=== PATIENT | female | born 1980 | race Hispanic/Latino ===

== ENCOUNTER 2023-10-07 13:19 | Inpatient (IN) | payer OTHER ==
[~2023-10-07] VITALS: Ht 157.5 cm; Wt 63.0 kg
[2023-10-07] VITALS (13 sets, daily range): BP systolic 116–163; BP diastolic 77–114; PULSE 84–108; RESP 6–73; O2SAT 96
[2023-10-07 14:19] LABS: BASOPHILS # (AUTO) 0.11 K/uL (0.00-0.20); BASOPHILS % (AUTO) 0.8 % (0.0-5.0); EOSINOPHILS # (AUTO) 0.07 K/uL (0.00-0.70); EOSINOPHILS % (AUTO) 0.5 % (0.0-8.0); HEMATOCRIT 24.4 % (36-48); IMMATURE GRANULOCYTE ABSOLUTE 0.21 K/uL (0-1); LYMPHOCYTES # (AUTO) 1.4 K/uL (1.0-4.8); MEAN CORPUSCULAR HEMOGLOBIN 27.3 pg (27.0-33.0); MEAN CORPUSCULAR HGB CONC 32.8 g/dL (32.0-36.0); MEAN CORPUSCULAR VOLUME 83.3 fL (79-99); MONOCYTES # (AUTO) 1.5 K/uL (0.1-1.0); NEUTROPHILS # (AUTO) 10.3 K/uL (1.8-7.7); NEUTROPHILS % (AUTO) 76.1 % (40.0-77.0); RED BLOOD CELL COUNT(AUTO) 2.93 MIL/uL (4.00-5.50); RED CELL DISTRIBUTION WIDTH 18.4 % (11.0-15.5); WHITE BLOOD COUNT (AUTO) 13.5 K/uL (4.8-10.8)
[2023-10-07] MEDS: LACTATED RINGERS 1000ML 1,000 ML IV ONE (14:31)
[2023-10-07 14:36] LABS: PLATELET COUNT (AUTO) 846 K/uL (130-400)
[2023-10-07 14:41] LABS: B-TYPE NATRIURETIC PEPTIDE 1530 pg/mL (0-100)
[2023-10-07 14:54] LABS: CREATININE 0.8 mg/dL (0.5-1.0); POTASSIUM 3.7 mmol/L (3.5-5.1)
[2023-10-07 14:55] LABS: PLATELET MORPHOLOGY COMMENT INCREASED
[2023-10-07] MEDS ORDERED: IOHEXOL 350 MG/ML 100ML INFUS..BTL IV ONE (15:11)
[2023-10-07 15:16] LABS: APPEARANCE,URINE CLEAR (CLEAR); BILIRUBIN,URINE NEGATIVE (NEGATIVE); COLOR,URINE LIGHT-YELLOW (YELLOW); GLUCOSE, URINE (UA) NEGATIVE (NEGATIVE); KETONES,URINE 40 mg/dL (NEGATIVE); LEUKOCYTE ESTERASE ,URINE NEGATIVE Leu/uL (NEGATIVE); NITRATE,URINE NEGATIVE (NEGATIVE); OCCULT BLOOD,URINE NEGATIVE (NEGATIVE); PH,URINE 5.5 (5.0-8.0); PROTEIN,URINE 10 mg/dL (NEGATIVE); UROBILINOGEN,URINE 0.2 mg/dL (0.2-1.0)
[2023-10-07 15:19] LABS: ADD UA MICROSCOPIC YES
[2023-10-07 15:21] LABS: RBC,URINE 0-1 /HPF (0-1); SQUAMOUS EPITHELIAL CELL,UR RARE /HPF (0-2); WBC,URINE 0-1 /HPF (0-1)
[2023-10-07 15:23] LABS: SARS-CoV-2, RNA, NAAT NEGATIVE SARS CoV-2 (NEGATIVE)
[2023-10-07 15:29] LABS: INFLUENZA TYPE A Negative For Type A (NEGATIVE); INFLUENZA TYPE B Negative For Type B (NEGATIVE)
[2023-10-07] MEDS: FUROSEMIDE 20MG VIAL IV ONE (15:39)
[2023-10-07 16:11] LABS: INR 1.07 (0.85-1.15); PROTHROMBIN TIME 11.5 SEC (9.6-11.6)
[2023-10-07 16:12] LABS: PARTIAL THROMBOPLASTIN TIME 31.3 SEC (26.3-35.5)
[2023-10-07] MEDS ORDERED: DOXYCYCLINE 100MG+NS 250ML 250 ML IV STA (16:46)
[2023-10-07] MEDS ORDERED: CEFEPIME HCL 2 GM VIAL IVPB STA (16:46)
[2023-10-07 17:27] LABS: CREATININE,URINE RANDOM 52.24 mg/dL (30-135)
[2023-10-07 17:28] LABS: AMPHET/METH SCREEN,URINE NEGATIVE (NEGATIVE); BARBITURATE SCREEN, URINE NEGATIVE (NEGATIVE); BENZODIAZEPINES SCREEN,URINE NEGATIVE (NEGATIVE); CANNABINOID SCREEN,URINE NEGATIVE (NEGATIVE); COCAINE SCREEN,URINE NEGATIVE (NEGATIVE); OPIATE SCREEN,URINE NEGATIVE (NEGATIVE); PHENCYCLIDINE SCREEN,URINE NEGATIVE (NEGATIVE)
[2023-10-07] MEDS ORDERED: 0.9%NACL 50ML IV SCH (17:30)
[2023-10-07 17:31] LABS: HEMOGLOBIN A1C 5.1 % (4.0-6.0)
[2023-10-07 17:34] LABS: BILIRUBIN,DIRECT 0.3 mg/dL (0.0-0.3); BILIRUBIN,TOTAL 0.6 mg/dL (0.2-1.0); TOTAL PROTEIN, SERUM 7.5 g/dL (6.0-8.3)
[2023-10-07 17:44] LABS: RETICULOCYTE % (AUTO) 2.97 % (0.42-2.23)
[2023-10-07] MEDS: ZOSYN 3.375GM +NS 50ML IVPB SCH (17:53)
[2023-10-07] MEDS ORDERED: DOXYCYCLINE 100MG+NS 250ML 250 ML IV SCH (18:00)
[2023-10-07] MEDS: AMLODIPINE 5 MG TAB PO SCH (18:03)
[2023-10-07] MEDS: NITROGLYCERIN PATCH 0.2 MG/HR TD SCH (18:03)
[2023-10-07 18:21] LABS: CREATININE 0.8 mg/dL (0.5-1.0); MAGNESIUM 1.4 mg/dL (1.80-2.40); POTASSIUM 3.6 mmol/L (3.5-5.1); THYROID STIMULATING HORMONE 3.45 uIU/mL (0.36-3.74)
[2023-10-07 18:25] LABS: % IRON SATURATION 4.9 % (22-44)
[2023-10-07] MEDS: BUDESONIDE 0.5 MG/2 ML INH IH SCH (18:43)
[2023-10-07 18:49] LABS: HIV 1&2 ANTIBODY Non-Reactive (Negative); HIV-1 p24 Antigen Non-Reactive (Negative)
[2023-10-07] MEDS: FUROSEMIDE 20MG VIAL IV SCH (20:18)
[2023-10-07] MEDS: DOXYCYCLINE 100MG+NS 250ML 250 ML IV SCH (20:19)
[2023-10-07] MEDS: FERROUS SULFATE 325 MG TABLET.DR PO SCH (20:19)
[2023-10-07] MEDS: ACETAMINOPHEN 500 MG TABLET PO PRN (20:19)
[2023-10-07] MEDS: PANTOPRAZOLE 40 MG/VIAL IVP SCH (20:24)
[2023-10-07] MEDS: ENOXAPARIN SODIUM 40 MG/0.4 ML SYRINGE SQ SCH (20:25)
[2023-10-07] MEDS ORDERED: LABETALOL 20MG SYG IV PRN (20:30)
[2023-10-07] MEDS: LABETALOL 20MG SYG IV PRN (20:53)
[2023-10-07] MEDS ORDERED: HYDRALAZINE 20MG/ML VIAL IV PRN (21:00)
[2023-10-07] MEDS ORDERED: AMLO-257 PO (21:01)
[2023-10-07] MEDS: MAGNESIUM 2GM PREMIX 50ML 50 ML IV SCH (23:23)
[2023-10-07 23:54] LABS: CREATININE 0.9 mg/dL (0.5-1.0); POTASSIUM 3.5 mmol/L (3.5-5.1); URIC ACID 5.2 mg/dL (2.6-7.2)
[2023-10-08] VITALS (35 sets, daily range): BP systolic 103–154; BP diastolic 65–105; PULSE 72–109; RESP 12–33; O2SAT 95–97
[2023-10-08] MEDS ORDERED: POTASSIUM CHLORIDE 10MEQ/100ML 100 ML IV PRN (01:30)
[2023-10-08] MEDS ORDERED: POTASSIUM CHLORIDE 20MEQ/100ML 100 ML IV PRN (01:30)
[2023-10-08] MEDS: POTASSIUM CHLORIDE 10% ELIXIR 20 MEQ/15 ML UDCUP PO PRN (02:27)
[2023-10-08 05:35] LABS: BASOPHILS # (AUTO) 0.07 K/uL (0.00-0.20); BASOPHILS % (AUTO) 0.6 % (0.0-5.0); EOSINOPHILS # (AUTO) 0.12 K/uL (0.00-0.70); HEMATOCRIT 21.4 % (36-48); LYMPHOCYTES # (AUTO) 1.5 K/uL (1.0-4.8); LYMPHOCYTES % (AUTO) 11.9 % (21.0-51.0); MEAN CORPUSCULAR HEMOGLOBIN 27.4 pg (27.0-33.0); MEAN CORPUSCULAR HGB CONC 33.2 g/dL (32.0-36.0); MEAN CORPUSCULAR VOLUME 82.6 fL (79-99); MONOCYTES # (AUTO) 1.9 K/uL (0.1-1.0); MONOCYTES % (AUTO) 15.6 % (3.0-13.0); NEUTROPHILS # (AUTO) 8.6 K/uL (1.8-7.7); NEUTROPHILS % (AUTO) 69.3 % (40.0-77.0); NUCLEATED RED BLOOD CELLS 0.2 % (0.0-0.19); RED BLOOD CELL COUNT(AUTO) 2.59 MIL/uL (4.00-5.50); RED CELL DISTRIBUTION WIDTH 18.7 % (11.0-15.5); WHITE BLOOD COUNT (AUTO) 12.4 K/uL (4.8-10.8)
[2023-10-08 05:36] LABS: PLATELET COUNT (AUTO) 713 K/uL (130-400)
[2023-10-08 06:24] LABS: POTASSIUM 3.8 mmol/L (3.5-5.1)
[2023-10-08] MEDS: SODIUM CHLORIDE 3% FOR INHALATION 4 ML/AMP VIAL.NEB IH ONE ×2 (06:32→11:12)
[2023-10-08] MEDS: Vitamin B Complex/Vit C/Folic Acid PO SCH (08:29)
[2023-10-08] MEDS: PROPRANOLOL HCL 20 MG TAB PO ONE (13:05)
[2023-10-08] MEDS: NIFEDIPINE ER 30 MG TAB PO ONE (13:05)
[2023-10-08] MEDS ORDERED: COMPOUND IV REFRIGERATED 1 EACH IVSOLN MISC PRN (14:00)
[2023-10-08] MEDS ORDERED: COMPOUND IV MISC 1 EACH IVSOLN MISC PRN (14:00)
[2023-10-08 19:49] LABS: AMYLASE 169 U/L (25-115); TRIGLYCERIDES 125 mg/dL (30-200)
[2023-10-08] MEDS: PROPRANOLOL HCL 20 MG TAB PO SCH (20:22)
[2023-10-08] MEDS: IRON SUCROSE COMPLEX 300 MG in 0.9% NACL 250ML 250 ML IV SCH (21:41)
[2023-10-09] VITALS (22 sets, daily range): BP systolic 110–140; BP diastolic 80–108; PULSE 71–87; RESP 15–26; O2SAT 94–95
[2023-10-09 04:26] LABS: BASOPHILS # (AUTO) 0.08 K/uL (0.00-0.20); BASOPHILS % (AUTO) 0.7 % (0.0-5.0); EOSINOPHILS # (AUTO) 0.17 K/uL (0.00-0.70); EOSINOPHILS % (AUTO) 1.5 % (0.0-8.0); IMMATURE GRANULOCYTE ABSOLUTE 0.23 K/uL (0-1); LYMPHOCYTES # (AUTO) 1.7 K/uL (1.0-4.8); LYMPHOCYTES % (AUTO) 15.1 % (21.0-51.0); MEAN CORPUSCULAR HEMOGLOBIN 27.8 pg (27.0-33.0); MEAN CORPUSCULAR HGB CONC 32.3 g/dL (32.0-36.0); MEAN CORPUSCULAR VOLUME 86.3 fL (79-99); MONOCYTES # (AUTO) 1.6 K/uL (0.1-1.0); MONOCYTES % (AUTO) 14.3 % (3.0-13.0); NEUTROPHILS # (AUTO) 7.5 K/uL (1.8-7.7); NEUTROPHILS % (AUTO) 66.4 % (40.0-77.0); PLATELET COUNT (AUTO) 686 K/uL (130-400); RED BLOOD CELL COUNT(AUTO) 2.55 MIL/uL (4.00-5.50); RED CELL DISTRIBUTION WIDTH 19.5 % (11.0-15.5); WHITE BLOOD COUNT (AUTO) 11.3 K/uL (4.8-10.8)
[2023-10-09 04:42] LABS: ALBUMIN 2.4 g/dL (3.5-5.0); BILIRUBIN,TOTAL 0.6 mg/dL (0.2-1.0); CREATININE 1.1 mg/dL (0.5-1.0); MAGNESIUM 1.7 mg/dL (1.80-2.40); PHOSPHORUS 2.7 mg/dL (2.5-4.9); POTASSIUM 3.8 mmol/L (3.5-5.1); TOTAL PROTEIN, SERUM 6.1 g/dL (6.0-8.3)
[2023-10-09 04:52] LABS: B-TYPE NATRIURETIC PEPTIDE 815 pg/mL (0-100)
[2023-10-09] MEDS: D5 NS WITH 20 mEq KCl 1000ML IV SCH (05:53)
[2023-10-09] MEDS: IPRATROPIUM 0.5 MG/2.5 ML INH IH PRN (08:25)
[2023-10-09] MEDS: NIFEDIPINE ER 30 MG TAB PO SCH (09:11)
[2023-10-09] MEDS: FUROSEMIDE 20 MG TABLET PO SCH (09:15)
[2023-10-09] MEDS ORDERED: LIPASE/PROTEASE/AMYLASE 5000/17000/24000 PO SCH (11:30)
[2023-10-09] MEDS: LIPASE/PROTEASE/AMYLASE 5000/17000/24000 PO SCH (11:34)
[2023-10-09] MEDS: FUROSEMIDE 20MG VIAL IV ONE (11:34)
[2023-10-10] VITALS (13 sets, daily range): BP systolic 116–151; BP diastolic 67–99; PULSE 69–90; RESP 18–20; O2SAT 96–98
[2023-10-10 01:25] LABS: HEPATITIS A IGM ANTIBODY Non-Reactive (Nonreactive); HEPATITIS B CORE IGM ANTIBODY Non-Reactive (Negative); HEPATITIS B SURFACE ANTIGEN Non-Reactive (Nonreactive); HEPATITIS C ANTIBODY Non-Reactive (Nonreactive)
[2023-10-10 03:51] LABS: BASOPHILS # (AUTO) 0.19 K/uL (0.00-0.20); BASOPHILS % (AUTO) 1.1 % (0.0-5.0); EOSINOPHILS # (AUTO) 0.23 K/uL (0.00-0.70); EOSINOPHILS % (AUTO) 1.3 % (0.0-8.0); HEMATOCRIT 22.3 % (36-48); IMMATURE GRANULOCYTE ABSOLUTE 0.43 K/uL (0-1); LYMPHOCYTES # (AUTO) 2.5 K/uL (1.0-4.8); LYMPHOCYTES % (AUTO) 14.6 % (21.0-51.0); MEAN CORPUSCULAR HEMOGLOBIN 27.3 pg (27.0-33.0); MEAN CORPUSCULAR HGB CONC 30.9 g/dL (32.0-36.0); MEAN CORPUSCULAR VOLUME 88.1 fL (79-99); MONOCYTES # (AUTO) 2.2 K/uL (0.1-1.0); MONOCYTES % (AUTO) 12.7 % (3.0-13.0); NEUTROPHILS # (AUTO) 11.8 K/uL (1.8-7.7); NEUTROPHILS % (AUTO) 67.8 % (40.0-77.0); NUCLEATED RED BLOOD CELLS 0.5 % (0.0-0.19); RED BLOOD CELL COUNT(AUTO) 2.53 MIL/uL (4.00-5.50); RED CELL DISTRIBUTION WIDTH 19.8 % (11.0-15.5); WHITE BLOOD COUNT (AUTO) 17.4 K/uL (4.8-10.8)
[2023-10-10 03:56] LABS: PLATELET COUNT (AUTO) 717 K/uL (130-400)
[2023-10-10 04:03] LABS: ALBUMIN 2.5 g/dL (3.5-5.0); BILIRUBIN,TOTAL 0.5 mg/dL (0.2-1.0); CREATININE 0.9 mg/dL (0.5-1.0); POTASSIUM 3.7 mmol/L (3.5-5.1); TOTAL PROTEIN, SERUM 6.2 g/dL (6.0-8.3)
[2023-10-10 04:19] LABS: B-TYPE NATRIURETIC PEPTIDE 1250 pg/mL (0-100)
[2023-10-10 22:08] LABS: MYCOPLASMA AB IGM <770 U/mL (0-769)
[2023-10-11] VITALS (13 sets, daily range): BP systolic 120–152; BP diastolic 90–108; PULSE 79–91; RESP 14–20; O2SAT 98–100
[2023-10-11 05:11] LABS: ABG OXYGEN SATURATION 45.1 % (95.0-99.0); BASE EXCESS,VENOUS BLOOD GAS -2.4 (-2.0-3.0); DEVICE COMMENT VBG RN; HCO3,VENOUS BLOOD GAS 22.5 (21.0-28.0); PCO2,VENOUS BLOOD GAS 39 (32-45); PH,VENOUS BLOOD GAS 7.381 (7.350-7.450); PO2,VENOUS BLOOD GAS 27.7 mmHg (35.0-45.0)
[2023-10-11 06:11] LABS: BASOPHILS # (AUTO) 0.18 K/uL (0.00-0.20); EOSINOPHILS # (AUTO) 0.15 K/uL (0.00-0.70); EOSINOPHILS % (AUTO) 0.8 % (0.0-8.0); IMMATURE GRANULOCYTE ABSOLUTE 0.44 K/uL (0-1); LYMPHOCYTES # (AUTO) 1.9 K/uL (1.0-4.8); LYMPHOCYTES % (AUTO) 10.4 % (21.0-51.0); MEAN CORPUSCULAR HEMOGLOBIN 28.2 pg (27.0-33.0); MEAN CORPUSCULAR HGB CONC 31.7 g/dL (32.0-36.0); MEAN CORPUSCULAR VOLUME 88.8 fL (79-99); MONOCYTES # (AUTO) 2.5 K/uL (0.1-1.0); MONOCYTES % (AUTO) 14.3 % (3.0-13.0); NEUTROPHILS # (AUTO) 12.6 K/uL (1.8-7.7); NUCLEATED RED BLOOD CELLS 1.1 % (0.0-0.19); PLATELET COUNT (AUTO) 692 K/uL (130-400); RED BLOOD CELL COUNT(AUTO) 2.59 MIL/uL (4.00-5.50); RED CELL DISTRIBUTION WIDTH 20.4 % (11.0-15.5); WHITE BLOOD COUNT (AUTO) 17.7 K/uL (4.8-10.8)
[2023-10-11 06:32] LABS: ALBUMIN 2.6 g/dL (3.5-5.0); BILIRUBIN,TOTAL 0.6 mg/dL (0.2-1.0); CREATININE 1.2 mg/dL (0.5-1.0); MAGNESIUM 1.4 mg/dL (1.80-2.40); POTASSIUM 3.4 mmol/L (3.5-5.1); TOTAL PROTEIN, SERUM 6.3 g/dL (6.0-8.3)
[2023-10-11 06:38] LABS: B-TYPE NATRIURETIC PEPTIDE 1160 pg/mL (0-100)
[2023-10-11] MEDS ORDERED: IOHEXOL 350 MG/ML 100ML INFUS..BTL IV ONE ×2 (11:43→12:12)
[2023-10-11] MEDS: POTASSIUM CHLORIDE 20MEQ/100ML 100 ML IV ONE (13:30)
[2023-10-11] MEDS: KCL 20 MEQ ERTAB PO PRN (18:03)
[2023-10-11] MEDS: MORPHINE 2 MG SYG IVP PRN (20:37)
[2023-10-11] MEDS: ONDANSETRON 4MG INJ IVP PRN (20:37)
[2023-10-12] VITALS (7 sets, daily range): BP systolic 144–148; BP diastolic 98–101; PULSE 79–86; RESP 14–18; O2SAT 96–97
[2023-10-12 05:01] LABS: HEMATOCRIT 23.9 % (36-48); MEAN CORPUSCULAR HEMOGLOBIN 27.1 pg (27.0-33.0); MEAN CORPUSCULAR HGB CONC 30.5 g/dL (32.0-36.0); MEAN CORPUSCULAR VOLUME 88.8 fL (79-99); NUCLEATED RED BLOOD CELLS 0.8 % (0.0-0.19); RED BLOOD CELL COUNT(AUTO) 2.69 MIL/uL (4.00-5.50); RED CELL DISTRIBUTION WIDTH 21.8 % (11.0-15.5); WHITE BLOOD COUNT (AUTO) 14.5 K/uL (4.8-10.8)
[2023-10-12 05:47] LABS: ALBUMIN 2.6 g/dL (3.5-5.0); BILIRUBIN,TOTAL 0.7 mg/dL (0.2-1.0); CREATININE 1.1 mg/dL (0.5-1.0); MAGNESIUM 1.4 mg/dL (1.80-2.40); POTASSIUM 4.3 mmol/L (3.5-5.1); TOTAL PROTEIN, SERUM 6.5 g/dL (6.0-8.3)
[2023-10-12] MEDS: MAGNESIUM 2GM PREMIX 50ML 50 ML IV SCH (06:38)
[2023-10-12] MEDS ORDERED: FERR324T4 PO (12:39)
[2023-10-12] MEDS ORDERED: PROP20TA96 PO (12:39)
[2023-10-12] MEDS ORDERED: DOXY100C5 PO (12:39)
[2023-10-12] MEDS ORDERED: AMOX1TAB16 PO (12:39)
[2023-10-12] MEDS ORDERED: NIFE-40 PO (12:39)
[2023-10-12] MEDS ORDERED: AMYL1CAP61 PO (12:41)
[2023-10-12] MEDS ORDERED: CALC-131 PO (12:41)
[2023-10-12] MEDS ORDERED: POTA20PA32 PO (12:46)
[2023-10-12] MEDS ORDERED: MAGN400T40 PO (12:46)
[2023-10-12] MEDS ORDERED: FURO20TA6 PO (12:46)
[2023-10-12] MEDS ORDERED: MAGNESIUM 2GM PREMIX 50ML 50 ML IV SCH (13:00)
== END 2023-10-12 15:30 | disposition home or self-care (01) | DRG 871 ==
LOC: EDH 13:19 → EDHIP 13:20 → UNDOADMIN 17:04 → 2BH 20:00 → 2DH 10-09 14:20 → 4BH 10-11 01:21
PROVIDERS: ADMIT Internal Medicine; ATTEND Internal Medicine
DX: A41.9 Sepsis, unspecified organism (principal); I50.43 Acute on chronic combined systolic (congestive) and diastolic (congestive) heart failure; J18.9 Pneumonia, unspecified organism; J96.01 Acute respiratory failure with hypoxia; K85.90 Acute pancreatitis without necrosis or infection, unspecified; M62.82 Rhabdomyolysis; J90 Pleural effusion, not elsewhere classified; I24.89 Other forms of acute ischemic heart disease; E87.1 Hypo-osmolality and hyponatremia; I16.1 Hypertensive emergency; I42.9 Cardiomyopathy, unspecified; N17.9 Acute kidney failure, unspecified; Z20.822 Contact with and (suspected) exposure to COVID-19; I11.0 Hypertensive heart disease with heart failure; D69.6 Thrombocytopenia, unspecified; E83.42 Hypomagnesemia; E83.51 Hypocalcemia; E87.8 Other disorders of electrolyte and fluid balance, not elsewhere classified; D50.9 Iron deficiency anemia, unspecified; D75.838 Other thrombocytosis; E86.0 Dehydration; F41.9 Anxiety disorder, unspecified; K82.8 Other specified diseases of gallbladder; Z79.899 Other long term (current) drug therapy; Z82.49 Family history of ischemic heart disease and other diseases of the circulatory system; Z84.1 Family history of disorders of kidney and ureter; Z91.199 Patient's noncompliance with other medical treatment and regimen due to unspecified reason; Z98.891 History of uterine scar from previous surgery
CPT/HCPCS: 36415; 36600; 71045; 71270; 74170; 74176; 74181; 76700; 76770; 80048; 80053; 80061; 80074; 80076; 80305; 81001; 81025; 82150; 82435; 82533; 82550; 82570; 82607; 82728; 82746; 82787; 82803; 82947; 83010; 83036; 83540; 83550; 83605; 83615; 83690; 83735; 83880; 83930; 83935; 84100; 84132; 84145; 84156; 84295; 84300; 84443; 84478; 84484; 84540; 84550; 85014; 85018; 85025; 85027; 85045; 85378; 85610; 85651; 85730; 86000; 86038; 86140; 86160; 86215; 86235; 86431; 86701; 86738; 86753; 86757; 86850; 86900; 86901; 87040; 87071; 87205; 87390; 87449; 87635; 87804; 93005; 93306; 93970; 94640; 94664; G0378; J1650; J1756; J1940; J2270; J2405; J2470; J2543; J3475; J3480; J3490; J7050; Q9967; S8037